=== PATIENT | male | born 1950 | race Hispanic/Latino ===

== ENCOUNTER 2016-12-05 06:42 | Day surgery (SDC) | payer MEDICARE ==
[2016-03-25 13:46] VITALS: BMI 19.8
[2016-12-05 08:02] LABS: BASO # 0.05 K/mm3 (0.0-2.0); EOS # 0.3 (0.0-0.7); EOS % 5.4 % (1.5-5.0); GRAN # 2.58 (1.4-6.5); GRAN % 53.4 % (50.0-68.0); HEMATOCRIT 38.2 % (42.0-52.0); LYMPH # 1.3 (1.2-3.4); LYMPH % 26.4 % (22.0-35.0); MEAN CELL VOLUME 93.6 fl (80.0-105.0); MEAN CORPUSCULAR HEMOGLOBIN 32.8 pg (25.0-35.0); MEAN CORPUSCULAR HGB CONC 35.1 g/dl (31.0-37.0); MEAN PLATELET VOLUME 10.1 fl (7.0-11.0); MONO # 0.7 (0.1-0.6); MONO % 13.8 % (1.0-6.0); RED CELL DISTRIBUTION WIDTH 12.9 % (11.5-14.5); WHITE BLOOD COUNT 4.8 10^3/ul (4.5-11.0)
[2016-12-05 08:12] LABS: BLOOD UREA NITROGEN 16 mg/dL (7-21); CALCIUM 10.2 mg/dL (8.4-10.5); CARBON DIOXIDE 29 mmol/L (21-33); CHLORIDE 100 mmol/L (98-107); CHOLESTEROL 211 mg/dL (130-200); GFR AFRICAN-AMERICAN > 60; GLUCOSE,RANDOM 87 mg/dL (70-110); POTASSIUM 4.9 mmol/L (3.6-5.0); SODIUM 142 mmol/L (132-148)
[2016-12-05 08:13] LABS: INR 0.92 (0.93-1.08); PARTIAL THROMBOPLASTIN TIME 26.4 Seconds (23.7-30.8)
[2016-12-05] MEDS ORDERED: Lidocaine 2% Inj (20ml) ONE (11:11)
[2016-12-05] MEDS ORDERED: Iohexol 350 MG/100 ML VIAL ONE (11:11)
[2016-12-05] MEDS ORDERED: Midazolam 2 MG/2 ML VIAL ONE ×2 (11:12→12:01)
[2016-12-05] MEDS ORDERED: Sodium Chloride 0.9% 1,000 ML IV SCH (12:30)
[2016-12-05 14:45] VITALS: TEMP 98.1; O2SAT 99
--- NOTE | 2016-12-05 15:52 | CARDCATH ---
PROCEDURE DATE: 12/05/2016 HISTORY: The patient is a 66-year-old male who presented with exertional shortness of breath. He was found to have a mild cardiomyopathy. Stress test was abnormal with multiple defects. The patient was brought for cardiac catheterization. His cardiac risk factors includes hypertension and many years of smoking. PROCEDURE: Left heart catheterization with coronary angiography and left ventriculogram. The right femoral artery was cannulated with 6-[place] sheath with no complications. The findings on catheterization revealed a left ventricle that was mildly diffusely hypokinetic with an estimated ejection fraction of 45-50%. His coronary anatomy revealed diffuse calcification throughout its coronary tree. The RCA was a right dominant circulation. The RCA revealed heavy calcification in the midportion, however, was free of critical lesions. The left main artery was unremarkable. The circumflex artery revealed marked calcification in its proximal portion with haziness in its proximal portion with no critical lesions throughout its course. The LAD and diagonal vessels were free of significant disease, but was noted to have epicardial calcification. Manual compression was used to close the femoral artery site. SUMMARY: In summary, the procedure revealed a mild dilated cardiomyopathy. 1. Diffuse calcification of the coronary tree with no critical lesions. 2. Chronic obstructive pulmonary disease. 3. Hypertension. 4. Hypercholesterolemia. 5. Alcohol abuse. Given these findings, the patient has a documented cardiomyopathy that is not ischemic in nature. I have discussed with the patient about the need to stop drinking alcohol as well as to see some smoking and undergo a strict cardiac risk reduction program. Jeb Sandhu MD
[2016-12-05 18:21] VITALS: BP 156/72; PULSE 59; RESP 17
== END 2016-12-05 19:11 | disposition home or self-care (01) ==
LOC: CATH 06:42
PROVIDERS: ATTEND Internal Medicine Cardiovascular Disease
DX: I42.0 Dilated cardiomyopathy (principal); J44.9 Chronic obstructive pulmonary disease, unspecified; I10 Essential (primary) hypertension; E78.00 Pure hypercholesterolemia, unspecified; F10.10 Alcohol abuse, uncomplicated; R94.31 Abnormal electrocardiogram [ECG] [EKG]; R94.39 Abnormal result of other cardiovascular function study; F17.210 Nicotine dependence, cigarettes, uncomplicated
CPT/HCPCS: 36415; 80048; 80061; 85025; 85610; 85730; 86850; 86900; 93458; 99152; 99153; C1769; C2629; J1644; J2250; J3010; J7040 ×2; Q9967

== ENCOUNTER 2018-04-26 09:29 | Outpatient (CLI) | payer MEDICARE | END 2018-04-26 09:30 | disposition home or self-care (01) | LOC: RAD 09:29 | DX: I10 Essential (primary) hypertension (principal); J44.9 Chronic obstructive pulmonary disease, unspecified ==